=== PATIENT | male | born 1980 | race African-American/Black ===

== ENCOUNTER 2017-02-05 05:04 | Emergency (ER) | payer SELFPAY ==
[2017-02-05] MEDS ORDERED: EPINEPHrine HCL (1:10,000) 1 MG/10 ML SYRINGE IV ONE (05:05)
[2017-02-05 05:25] VITALS: O2SAT 85
[2017-02-05 05:40] LABS: AUTOMATED NEUTROPHIL # 6.7 TH/MM3 (1.8-7.7); BASOPHIL % 0.3 % (0.0-2.0); EOSINOPHIL # 0.1 TH/MM3 (0-0.4); EOSINOPHIL % 0.8 % (0.0-4.0); LYMPH % 25.3 % (9.0-44.0); LYMPHOCYTE # 2.4 TH/MM3 (1.0-4.8); MEAN CORPUSCULAR HEMOGLOBIN 30.8 PG (27.0-34.0); MEAN CORPUSCULAR HGB CONC 32.8 % (32.0-36.0); MONO % 3.4 % (0.0-8.0); NEUT % 70.2 % (16.0-70.0); PLATELET COUNT 78 TH/MM3 (150-450); RED BLOOD COUNT 1.55 MIL/MM3 (4.50-5.90); WHITE BLOOD COUNT 9.6 TH/MM3 (4.0-11.0)
[2017-02-05] MEDS ORDERED: EPINEPHrine HCL (1:10,000) 1 MG/10 ML SYRINGE ONE (05:41)
[2017-02-05 05:44] LABS: HEMO FLAGS AUTO DIFF
[2017-02-05 05:45] LABS: HEMATOCRIT 14.5 % (39.0-51.0)
[2017-02-05 05:50] LABS: I-STAT POTASSIUM 4.1 MMOL/L (3.5-4.9); I-STAT SODIUM 147 MMOL/L (138-146)
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
[2017-02-05 06:42] LABS: PLATELET ESTIMATE SMEAR LOW (NORMAL); PLATELET MORPHOLOGY NORMAL (NORMAL); SCAN/DIFF AUTO DIFF CONFIRMED
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
== END 2017-02-05 11:45 | disposition expired ==
LOC: NEPI 05:04 → EDBD 05:04 → NEPI 11:45
DX: S01.80XA Unspecified open wound of other part of head, initial encounter (principal); I95.9 Hypotension, unspecified; Y22.XXXA Handgun discharge, undetermined intent, initial encounter; Y92.096 Garden or yard of other non-institutional residence as the place of occurrence of the external cause
CPT/HCPCS: 36430; 36556; 36620; 43753; 51702; 71010; 82435; 82565; 82947; 84132; 84295; 84520; 85025; 86850; 86900; 86901; 86920; 92950; 99291; J0171; P9016; G0390